=== PATIENT | male | born 1940 ===

== ENCOUNTER 2017-01-15 14:43 | Emergency (ER) | payer MEDICARE ==
[2017-01-15 14:59] VITALS: BMI 24.7
[2017-01-15 15:03] VITALS: TEMP 98.2
--- NOTE | 2017-01-15 15:06 | C.PDOC ---
History Of Present Illness <Shauna Gann - Last Filed: 01/15/17 18:32> <Maria E Alarcon - Last Filed: 01/18/17 16:50> 76 y/o male with PMHx of HTN brought to ED by EMS for bleeding from penis for the past 2 hours [employer] as per family at bedside. Family reports symptoms developed today and bleeding is heavy. Patient denies fever, chills, nausea, vomiting, dysuria, back pain or any other complaints at this time. (Shauna Gann) History Per: Patient History/Exam Limitations: no limitations Onset/Duration Of Symptoms: Hrs Current Symptoms Are (Timing): Still Present <Shauna Gann - Last Filed: 01/15/17 18:32> <Maria E Alarcon - Last Filed: 01/18/17 16:50> Time Seen by Provider: 01/15/17 14:45 Chief Complaint (Nursing): Male Genitourinary Past Medical History Reviewed: Historical Data, Nursing Documentation, Vital Signs - Medical History PMH: Arthritis, HTN, Hypercholesterolemia, Hypothyroidism, Kidney Stones Surgical History: No Surg Hx Family History: States: No Known Family Hx - Social History Hx Tobacco Use: No Hx Alcohol Use: No Hx Substance Use: No - Immunization History Hx Tetanus Toxoid Vaccination: No Hx Influenza Vaccination: Yes Hx Pneumococcal Vaccination: No <Shauna Gann - Last Filed: 01/15/17 18:32> Vital Signs: Last Vital Signs Temp 98.2 F 01/15/17 14:58 Pulse 67 01/15/17 18:07 Resp 18 01/15/17 18:07 BP 132/69 01/15/17 18:07 Pulse Ox 98 01/15/17 18:35 - [facility] Procedures CYSTOSCOPY NEC (11/21/13) ENDOSC POLYPECTOMY OF LG INTEST (08/09/13) REPLACE OF L KNEE JT WITH SYNTH SUB, CEMENT, OPEN APPROACH (12/08/14) TETANUS TOXOID ADMINIST (05/13/14) TU BLADDER CLEARANCE (11/21/13) URETH STRICTURE RELEASE (11/21/13) Review Of Systems Constitutional: Negative for: Fever, Chills Gastrointestinal: Positive for: Abdominal Pain. Negative for: Nausea, Vomiting Genitourinary: Positive for: Other (Penile bleeding). Negative for: Dysuria Skin: Negative for: Rash Neurological: Negative for: Weakness, Numbness <Shauna Gann - Last Filed: 01/15/17 18:32> Physical Exam - Physical Exam Appears: Non-toxic, No Acute Distress Skin: Normal Color, Warm, Dry, No Rash Head: Atraumatic, Normacephalic Eye(s): bilateral: Normal Inspection Oral Mucosa: Moist Neck: Supple Cardiovascular: Rhythm Regular Respiratory: Normal Breath Sounds, No Rales, No Rhonchi, No Wheezing Gastrointestinal/Abdominal: Soft, No Tenderness, No Guarding, No Rebound Rectal: Normal Exam, Heme Negative, No Maroon Stool, No Blood Streaked Stool, Other (+adult diaper dark blood streak noted ) Back: No CVA Tenderness Extremity: Normal ROM, Capillary Refill (<2 seconds) Neurological/Psych: Oriented x3 Gait: Unable To Assess <Shauna Gann - Last Filed: 01/15/17 18:32> ED Course And Treatment - Laboratory Results Result Diagrams: 01/15/17 15:39 01/15/17 15:39 Lab Interpretation: Normal O2 Sat by Pulse Oximetry: 98 (RA) Pulse Ox Interpretation: Normal Progress Note: Treated with IVF NSS and rocephin IV. On re-evaluation abdomen soft non-tender, in no distress Reassessment Condition: Improved <Shauna Gann - Last Filed: 01/15/17 18:32> - Laboratory Results Result Diagrams: 01/15/17 15:39 01/15/17 15:39 <Maria E Alarcon - Last Filed: 01/18/17 16:50> Medical Decision Making <Shauna Gann - Last Filed: 01/15/17 18:32> <Maria E Alarcon - Last Filed: 01/18/17 16:50> Medical Decision Making: Plan: Blood work, UA Patient and family reports blood in diaper today rectal exam no blood (Shauna Gann) Disposition Counseled Patient/Family Regarding: Studies Performed, Diagnosis, Need For Followup, Rx Given - Disposition Disposition Time: 18:00 - POA Present On Arrival: None <Shauna Gann - Last Filed: 01/15/17 18:32> <Maria E Alarcon - Last Filed: 01/18/17 16:50> - Disposition Referrals: Brian Metz MD [Staff Provider] - Disposition: HOME/ ROUTINE Condition: STABLE Additional Instructions: Return to ED if any increase symptoms Follow up with your PMD and urologist for further evaluation Prescriptions: Cefdinir [Omnicef] 300 mg PO BID #14 cap Instructions: Urinary Tract Infection in Men (ED), Acute Hematuria (ED) Forms: [employer] [facility] ([place]alan) - Clinical Impression Clinical Impression: Acute urinary tract infection, Hematuria - PA / INCLUSION [employer]UCATION TE[employer]ER / Resident Statement MD/DO has reviewed & agrees with the documentation as recorded. - Scribe Statement The provider has reviewed the documentation as recorded by the Scribe <Shauna Gann - Last Filed: 01/15/17 18:32> <Maria E Alarcon - Last Filed: 01/18/17 16:50> - Scribe Statement Camila Carr All medical record entries made by the Scribe were at my direction and personally dictated by me. I have reviewed the chart and agree that the record accurately reflects my personal performance of the history, physical exam, medical decision making, and the department course for this patient. I have also personally directed, reviewed, and agree with the discharge instructions and disposition. (Shauna Gann)
[2017-01-15 15:46] LABS: BASO # 0.1 K/uL (0.0-0.2); BASO % 1.8 % (0.0-2.0); EOS # 0.1 K/uL (0.0-0.7); EOS % 1.1 % (0.0-4.0); HEMATOCRIT 43.2 % (35.0-51.0); LYMPH # 1.4 K/uL (1.0-4.3); LYMPH % 24.4 % (20.0-40.0); MEAN CORPUSCULAR HEMOGLOBIN 32.8 pg (27.0-31.0); MEAN CORPUSCULAR HGB CONC 33.8 g/dL (33.0-37.0); MEAN PLATELET VOLUME 6.3 fL (7.2-11.7); MONO # 0.5 K/uL (0.0-0.8); NRBC % 0.1 % (0.0-2.0); RED CELL DISTRIBUTION WIDTH 13.2 % (11.5-14.5); WHITE BLOOD COUNT 5.9 K/uL (4.8-10.8)
[2017-01-15 16:25] LABS: RBC URINE 3 /hpf (0-3); URINE BACTERIA OCC (<OCC); URINE BILIRUBIN NEGATIVE (NEGATIVE); URINE BLOOD 1+ (NEGATIVE); URINE COLOR Yellow (YELLOW); URINE GLUCOSE (UA) NORMAL (Normal); URINE KETONE NEGATIVE (NEGATIVE); URINE LEUKOCYTE ESTERASE 3+ Leu/uL (Negative); URINE PROTEIN NEGATIVE (NEGATIVE); URINE UROBILINOGEN NORMAL mg/dL (0.2-1.0); WBC URINE 35 /hpf (0-5)
[2017-01-15 16:25] LABS: ALB/GLOB RATIO 1.4 (1.0-2.1); ALKALINE PHOSPHATASE 62 U/L (38-126); ALT/SGPT 40 U/L (21-72); AST/SGOT 24 U/L (17-59); BILIRUBIN,TOTAL 0.5 mg/dL (0.2-1.3); BLOOD UREA NITROGEN 12 mg/dL (9-20); CALCIUM 9.1 mg/dl (8.6-10.4); CARBON DIOXIDE 23 mmol/L (22-30); CHLORIDE 100 mmol/L (98-107); GFR AFRICAN-AMERICAN > 60; GLUCOSE,RANDOM 89 mg/dL (75-110); POTASSIUM 4.4 mmol/L (3.6-5.2); SODIUM 131 mmol/L (132-148); TOTAL PROTEIN 6.9 g/dL (6.3-8.3)
[2017-01-15] MEDS ORDERED: cefTRIAXone IV 1 gm in Dextros 50 ML IV ONE (16:31)
[2017-01-15 18:09] VITALS: BP 132/69; PULSE 67; RESP 18
[2017-01-15 18:35] VITALS: O2SAT 98
== END 2017-01-15 18:08 | disposition home or self-care (01) ==
LOC: C.ER 14:43
DX: N39.0 Urinary tract infection, site not specified (principal); R31.9 Hematuria, unspecified
CPT/HCPCS: 80053; 81001; 85025; 85610; 85730; 86850; 86900; 87086; 87181; 96365; 99285; J0696